=== PATIENT | male | born 1965 | race African-American/Black ===

== ENCOUNTER 2018-08-25 12:06 | Emergency (ER) | payer MEDICAID ==
[~2018-08-25] VITALS: Ht 180.3 cm; Wt 95.0 kg
[2018-08-25 12:59] VITALS: BP 181/107
== END 2018-08-25 14:47 | disposition left against medical advice (07) ==
LOC: ER 12:06
DX: Z53.21 Procedure and treatment not carried out due to patient leaving prior to being seen by health care provider (principal)